=== PATIENT | female | born 1970 | race Caucasian/White ===

== ENCOUNTER 2017-10-05 12:57 | Emergency (ER) | payer BC, OTHER ==
[~2017-10-05] VITALS: Ht 165.1 cm; Wt 106.6 kg
[~2017-10-05 12:57] MED LIST: KETO-22 PO; MULT-974 PO; NSAID; OMEP20CA12 PO; ONDAN4ODT PO; VICODIN 5/325 PO
--- OUTSIDE RECORDS SUMMARY | 2017-10-05 13:03 | XMS REPORT ---
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 Info Not Available Non Drug Allergy Problems Problem Type Condition Code Onset Dates Condition Status Assessment Wellness examination Z00.00 Active Problem Allergic urticaria 708.0 Active Medications Medication Code System Code Instructions Start Date End Date Status Dosage Vitamin C [facility] [address]-27 1000 MG Orally Once a day 1 tablet Multivitamin Adult [facility] [address] - Orally not defined cetirizine [facility] [address]-85 10 mg May 01, 2014 1 tablet by Oral route 1 daily Vitamin D [facility] [address]-90 1000 UNIT Orally Once a day 1 tablet Procedures Procedure Coding System Code Date Preventive Care Est Pt. Age 40-64 CPT-4 43107 Mar 23, 2016 Vital Signs Date/Time: Mar 23, 2016 Cardiac Monitoring Heart Rate 80 bpm Weight 226.0 lbs Height 64 in BMI 38.79 Index Blood Pressure Diastolic 76 mmHg Blood Pressure Systolic 108 mmHg Results No Known Results Summary Purpose [employer] Submission
--- OUTSIDE RECORDS SUMMARY | 2017-10-05 13:03 | XMS REPORT ---
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
--- OUTSIDE RECORDS SUMMARY | 2017-10-05 13:06 | XMS REPORT | Continuity of Care Document ---
Author Author [facility] Organization [facility] Address Unknown Phone Unavailable Allergies There is no data. Medications There is no data. Problems Date Dx Coded Attending Type Code Diagnosis Diagnosed By 02/17/2010 JERAMIE OAKLEY APRN 278.00 OBESITY UNSPECIFIED 02/17/2010 JERAMIE OAKLEY APRN L 300.00 ANXIETY UNSPEC 02/17/2010 JERAMIE OAKLEY APRN L 401.1 HYPERTENSION, BENIGN ESSENTIAL 02/17/2010 CELE LOPEZ JERAMIE L 552.1 UMBILICAL HERNIA WITH OBSTRUCTION 02/17/2010 CELE LOPEZ JERAMIE L 780.60 FEVER, UNSPECIFIED 02/17/2010 ARMANDO OAKLEY APRNSON L 789.00 ABDOMINAL PAIN UNSPECIFIED SITE 02/25/2010 CELE LOPEZ JERAMIE L 296.30 MAJOR DEPRESSIVE DISORDER, RECURRENT EPISODE, UNSPECIFIED 04/08/2010 ARMANDO OAKLEY APRNSON L 553.1 UMBILICAL HERNIA WITHOUT OBSTRUCTION OR GANGRENE 04/25/2010 ARMANDO OAKLEY APRNSON L 296.32 MO DEPRESSIVE RECURRENT MODERATE 04/29/2010 CELE LOPEZ JERAMIE L 296.90 MOOD DISORDER 04/29/2010 ARMANDO OAKLEY APRNSON L 799.22 IRRITIBILITY 06/12/2010 ARMANDO OAKLEY APRNSON L 311 DEPRESSIVE DISORDER NOS 12/29/2010 ARMANDO OAKLEY APRNSON L V74.1 TB SCREENING 01/02/2011 CELE LOPEZ JERAMIE L V70.0 ROUTINE GENERAL MEDICAL EXAMINATION AT A HEALTH CARE FACILITY 04/30/2011 JERAMIE OAKLEY APRN L 465.9 ACUTE UPPER RESPIRATORY INFECTIONS OF UNSPECIFIED SITE 05/01/2014 ARMANDO OAKLEY APRNSON L 708.0 ALLERGIC URTICARIA Procedures Code [place] [address] ROUTINE VENIPUNCTURE 05/01/2014 26879 RAST ALLERGY OK/KS PANEL 05/01/2014 Results There is no data. Encounters ACCT No. Visit Date/Time Discharge Status Pt. Type Provider Facility Loc./Unit Complaint [id number] 10/22/2013 00:50:00 10/23/2013 13:50:00 DIS Outpatient [id number] 09/29/2017 09:00:00 09/29/2017 23:59:59 CLS Outpatient JULIET MASSEY APRN [id number] 05/01/2014 11:59:00 05/01/2014 23:59:59 CLS Outpatient JERAMIE OAKLEY APRN
[2017-10-05] MEDS ORDERED: AMOX1TAB12 (13:28)
--- NOTE | 2017-10-05 13:49 | ED Abdominal Pain ---
General Chief Complaint: Abdominal/GI Problems Stated Complaint: ABD PAIN Nursing Triage Note: TO ROOM C/O LOW ABD PAIN SINCE YESTERDAY. Sepsis Screen: No Definite Risk Source of Information: Patient Exam Limitations: No Limitations History of Present Illness Date Seen by Provider: Oct 05, 2017 Time Seen by Provider: 13:47 Initial Comments To ER with suprapubic and right lower quadrant abdominal pain since yesterday. She was started on Augmentin for a sinus infection last week. She is still on this. She initially thought that maybe this was some cramping from the Augmentin. She does report mild loose stools. No fevers or chills. No dysuria. She did have some nausea. Timing/Duration: 1-2 Days Severity/Quality: Moderate Location: Suprapubic Allergies and Home Medications Allergies Coded Allergies: No Known Drug Allergies (Unverified , 01/06/12) Home Medications Hydrocodone/Acetaminophen 1 Each Tablet, 1 EACH PO Q4H PRN for PAIN-SEVERE Prescribed by: DALE KRAFT on 10/05/17 150 Levofloxacin 500 Mg Tablet, 500 MG PO DAILY Prescribed by: DALE KRAFT on 10/05/17 150 Multivitamin 1 Each Tablet, 1 TAB PO DAILY, (Reported) Tamsulosin HCl 0.4 Mg Cap, 0.4 MG PO DAILY Prescribed by: DALE KRAFT on 10/05/17 1507 Patient Home Medication List Home Medication List Reviewed: Yes Review of Systems Constitutional: see HPI; No chills, No fever EENTM: No Symptoms Reported Respiratory: No Symptoms Reported Cardiovascular: No Symptoms Reported Gastrointestinal: See HPI, Abdominal Pain; Denies Constipated; Diarrhea, Nausea Genitourinary: No Symptoms Reported Musculoskeletal: no symptoms reported Skin: no symptoms reported Psychiatric/Neurological: No Symptoms Reported Endocrine: No Symptoms Reported Past Igojqzy-Heqtat-Zlgjca Hx Patient Social History Alcohol Use: Denies Use Recreational Drug Use: No Smoking Status: Never a Smoker Recent Foreign Travel: No Contact w/Someone Who Travel: No Recent Infectious Disease Expo: No Immunizations Up To Date Date of Influenza Vaccine: Apr 21, 2013 Past Medical History Surgeries: Yes (D&C/vag delivery x 2; incarcerated hernia repair 10/22/13) Respiratory: No Cardiac: No Neurological: No Last Menstrual Period: Sep 19, 2017 Female Reproductive Disorders: Endometriosis Sexually Transmitted Disease: Yes (trichomoniasis (jul 2013)) Gastrointestinal: No (incarcerated hernia repair 10/22/13 - dr. bar) Endocrine: Yes (gestational diabetes) Cancer: No Psychosocial: No Integumentary: No Blood Disorders: No Family Medical History Dementia 19 MOTHER, Onset:Unknown Family history: Arthritis 19 FATHER, Onset:Unknown (Rheumatoid Arthritis) Family history: Thyroid disorder 19 MOTHER, Onset:Unknown Hearing loss 19 FATHER, Onset:Unknown History of - respiratory disease 19 FATHER, Onset:Unknown Physical Exam Vital Signs Vital Signs - First Documented 10/05/17 13:10 Temp 97.8 Pulse 82 Resp 18 B/P (MAP) 154/104 (121) Capillary Refill : Less Than 3 Seconds General Appearance: WD/WN, no apparent distress HEENT: PERRL/EOMI, normal ENT inspection Neck: non-tender, full range of motion Respiratory: no respiratory distress, no accessory muscle use Gastrointestinal: normal bowel sounds, soft, tenderness Extremities: normal range of motion, non-tender Neurologic/Psychiatric: alert, normal mood/affect, oriented x 3 Skin: normal color Progress/Results/Core Measures Lab Results Laboratory Tests Test 10/05/17 13:42 10/05/17 13:56 Range/Units Urine Color YELLOW Urine Clarity SLIGHTLY CLOUDY Urine pH 6 5-9 Urine Specific [place] 1.025 H 1.016-1.022 Urine Protein 2+ H NEGATIVE Urine Glucose (UA) NEGATIVE NEGATIVE Urine Ketones NEGATIVE NEGATIVE Urine Nitrite NEGATIVE NEGATIVE Urine Bilirubin NEGATIVE NEGATIVE Urine Urobilinogen NORMAL NORMAL MG/DL Urine Leukocyte Esterase 2+ H NEGATIVE Urine RBC (Auto) 5+ H NEGATIVE Urine RBC >100 H /HPF Urine WBC 5-10 H /HPF Urine Squamous Epithelial Cells 2-5 /HPF Urine Crystals PRESENT H /LPF Urine Calcium Oxalate Crystals FEW H /LPF Urine Bacteria FEW H /HPF Urine Casts NONE /LPF Urine Mucus SMALL H /LPF Urine Culture Indicated YES White Blood Count 10.3 4.3-11.0 10^3/uL Red Blood Count 4.44 4.35-5.85 10^6/uL Hemoglobin 13.1 11.5-16.0 G/DL Hematocrit 40 35-52 % Mean Corpuscular Volume 90 80-99 FL Mean Corpuscular Hemoglobin 30 25-34 PG Mean Corpuscular Hemoglobin Concent 33 32-36 G/DL Red Cell Distribution Width 13.1 10.0-14.5 % Platelet Count 266 130-400 10^3/uL Mean Platelet Volume 10.2 7.4-10.4 FL Neutrophils (%) (Auto) 77 H 42-75 % Lymphocytes (%) (Auto) 13 12-44 % Monocytes (%) (Auto) 9 0-12 % Eosinophils (%) (Auto) 1 0-10 % Basophils (%) (Auto) 0 0-10 % Neutrophils # (Auto) 7.9 H 1.8-7.8 X 10^3 Lymphocytes # (Auto) 1.4 1.0-4.0 X 10^3 Monocytes # (Auto) 0.9 0.0-1.0 X 10^3 Eosinophils # (Auto) 0.1 0.0-0.3 10^3/uL Basophils # (Auto) 0.0 0.0-0.1 10^3/uL Sodium Level 141 135-145 MMOL/L Potassium Level 3.7 3.6-5.0 MMOL/L Chloride Level 105 98-107 MMOL/L Carbon Dioxide Level 27 21-32 MMOL/L Anion Gap 9 5-14 MMOL/L Blood Urea Nitrogen 10 7-18 MG/DL Creatinine 1.21 0.60-1.30 MG/DL Estimat Glomerular Filtration Rate 48 BUN/Creatinine Ratio 8 Glucose Level 88 70-105 MG/DL Calcium Level 10.4 H 8.5-10.1 MG/DL Total Bilirubin 0.4 0.1-1.0 MG/DL Aspartate Amino Transf (AST/SGOT) 47 H 5-34 U/L Alanine Aminotransferase (ALT/SGPT) 74 H 0-55 U/L Alkaline Phosphatase 85 40-136 U/L Total Protein 7.4 6.4-8.2 GM/DL Albumin 4.4 3.2-4.5 GM/DL My Orders Orders - DALE KRAFT APRN Ua Culture If Indicated (10/05/17 13:38) Urine Bedside (10/05/17 13:38) Saline Lock/Iv-Start (10/05/17 13:38) Cbc With Automated Diff (10/05/17 13:38) Comprehensive Metabolic Panel (10/05/17 13:38) Fentanyl Injection (Sublimaze Injection (10/05/17 14:00) Ct Abd/Pelvis Wo(Kidney Stone) (10/05/17 13:46) Ondansetron Injection (Zofran Injectio (10/05/17 14:00) Urine Culture (10/05/17 13:42) Abdomen/Kub 1[place] (10/05/17 15:08) Fentanyl Injection (Sublimaze Injection (10/05/17 15:30) Medications Given in ED Current Medications Medications Dose Ordered Sig/Priscilla Route Start Time Stop Time Status Last Admin Dose Admin Fentanyl Citrate 25 mcg ONCE PRN IVP 10/05/17 15:30 10/05/17 15:35 25 MCG Fentanyl Citrate 50 mcg ONCE ONCE IVP 10/05/17 14:00 10/05/17 14:01 DC 10/05/17 14:04 50 MCG Ondansetron HCl 4 mg ONCE ONCE IVP 10/05/17 14:00 10/05/17 14:01 DC 10/05/17 14:04 4 MG Vital Signs/I&O 10/05/17 13:10 Temp 97.8 Pulse 82 Resp 18 B/P (MAP) 154/104 (121) Blood Pressure Mean: 121 Diagonstic Imaging: CT Comments NAME: GERBER HOBBS [facility] REC#: [id number] PT STATUS: REG ER : 1970 PHYSICIAN: DALE KRAFT RN STARS ADMIT DATE: 10/05/17/ER Draft Date of Exam:10/05/17 CT ABD/PELVIS WO(KIDNEY STONE) PROCEDURE: CT urinary tract, rule out kidney stone. TECHNIQUE: Multiple contiguous axial images were obtained through the abdomen and pelvis without the use of intravenous contrast. INDICATION: Lower abdominal pain and nausea. Comparison is made with prior CT from 10/21/2013. The lung bases are clear. No discrete liver mass is identified. Gallbladder is unremarkable. The pancreas and spleen are unremarkable. No adrenal mass is identified. Left kidney does show a 3 mm nonobstructing calculus in the mid region. Right kidney is enlarged. There is hydronephrosis. This is caused by 6 mm calculus located at the right UPJ. The remainder of the right ureter is unremarkable. The bladder is unremarkable. No bladder calculi are seen. The aorta is non-aneurysmal. The small and large bowel loops are normal caliber. There is no ascites. The uterus and bladder are unremarkable. Left pelvic teratoma is again noted and unchanged. Previously noted abdominal wall hernia is no longer visualized. IMPRESSION: 1. 6 mm right UPJ calculus producing moderate hydronephrosis. There is also a small nonobstructing left renal calculus. 2. Stable left pelvic teratoma. No other significant abnormality is seen. Dictated on workstation # [id number] Dict: 10/05/17 1438 Trans: 10/05/17 1443 [facility] [id number] Interpreted by: MELYSSA BRANTLEY MD Electronically signed by: NAME: GERBER HOBBS [facility] REC#: [id number] PT STATUS: REG ER : 1970 PHYSICIAN: DALE KRAFT APRN ADMIT DATE: 10/05/17/ER Draft Date of Exam:10/05/17 ABDOMEN/KUB 1VIEW INDICATION: FINDINGS: A right upper quadrant obliquely oriented elongated calcification measures a cephalocaudal length of 9.5 mm, unchanged in size, morphology and location to what was demonstrated at earlier CT. Left pelvic calcification correlates with calcified nodule associated with fat-containing adnexal mass, presumed dermoid. No change when the differing modalities are taken into account. IMPRESSION: Proximal right ureteral stone, large and unchanged in appearance from earlier CT. Left adnexal partly calcified mass effect, unchanged as well. Dictated on workstation # [id number] Dict: 10/05/17 1529 Trans: 10/05/17 1535 [facility] [id number] Interpreted by: MINNIE LUU Electronically signed by: Departure Communication (Admissions) [id number]- I spoke with Dr. Pringle. He will follow with the patient in the clinic Impression Primary Impression: Right ureteral stone Disposition: 01 HOME, SELF-CARE Condition: Stable Departure-Patient Inst. Decision time for Depature: 15:05 Referrals: [facility] (PCP) Primary Care Physician MANAS PRINGLE MD Patient Instructions: Kidney Stones in Adults Add. Discharge Instructions: 1. Continue to use drugs appropriate 2. Stop the Augmentin and start the new antibiotic as directed 3. Start the pain medication as directed. Call Dr. Pringle's office either today or tomorrow for an appointment to be seen this week. All discharge instructions reviewed with patient and/or family. Voiced understanding. Scripts Hydrocodone/Acetaminophen ([place] 5-325 Tablet) 1 Each Tablet 1 EACH PO Q4H PRN for PAIN-SEVERE, #30 TAB Prov: DALE KRAFT APRN 10/05/17 Levofloxacin (Levaquin) 500 Mg Tablet 500 MG PO DAILY, #5 TAB Prov: DALE KRAFT APRN 10/05/17 Tamsulosin HCl (Flomax) 0.4 Mg Cap 0.4 MG PO DAILY, #14 CAP Prov: DALE KRAFT APRN 10/05/17 Work/School Note: Work Release Form Date Seen in the Emergency Department: Oct 05, 2017 Return to Work: Oct 08, 2017 Copy Copies To 1: MANAS PRINGLE MD, PETER J APRN Oct 05, 2017 13:49
[2017-10-05 13:52] LABS: BILIRUBIN,URINE NEGATIVE (NEGATIVE); CLARITY,URINE SLIGHTLY CLOUDY; COLOR,URINE YELLOW; GLUCOSE, URINE (UA) NEGATIVE (NEGATIVE); KETONES,URINE NEGATIVE (NEGATIVE); LEUKOCYTE ESTERASE ,URINE 2+ (NEGATIVE); NITRITE,URINE NEGATIVE (NEGATIVE); PH,URINE 6 (5-9); PROTEIN,URINE 2+ (NEGATIVE); UROBILINOGEN,URINE NORMAL (NORMAL)
[2017-10-05 14:00] LABS: BASOPHILS % (AUTO) 0 % (0-10); EOSINOPHILS # (AUTO) 0.1 10^3/uL (0.0-0.3); EOSINOPHILS % (AUTO) 1 % (0-10); HEMATOCRIT 40 % (35-52); HEMOGLOBIN 13.1 G/DL (11.5-16.0); LYMPHOCYTES # (AUTO) 1.4 X 10^3 (1.0-4.0); LYMPHOCYTES % (AUTO) 13 % (12-44); MEAN CORPUSCULAR HEMOGLOBIN 30 PG (25-34); MEAN CORPUSCULAR HGB CONC 33 G/DL (32-36); MEAN CORPUSCULAR VOLUME 90 FL (80-99); MEAN PLATELET VOLUME 10.2 FL (7.4-10.4); MONOCYTES # (AUTO) 0.9 X 10^3 (0.0-1.0); MONOCYTES % (AUTO) 9 % (0-12); NEUTROPHILS # (AUTO) 7.9 X 10^3 (1.8-7.8); NEUTROPHILS % (AUTO) 77 % (42-75); PLATELET COUNT 266 10^3/uL (130-400); RED BLOOD COUNT 4.44 10^6/uL (4.35-5.85); RED CELL DISTRIBUTION WIDTH 13.1 % (10.0-14.5); WHITE BLOOD COUNT 10.3 10^3/uL (4.3-11.0)
[2017-10-05] MEDS ORDERED: ONDANSETRON 4 MG/2 ML (SDV) Z0FRAN IVP ONE (14:00)
[2017-10-05] MEDS ORDERED: fentaNYL INJECTION 100 MCG/2 ML AMP IVP ONE (14:00)
[2017-10-05 14:04] LABS: BACTERIA,URINE FEW /HPF; CALCIUM OXALATE CRYSTALS,UR FEW /LPF; RBC,URINE >100 /HPF
[2017-10-05 14:17] LABS: ALBUMIN 4.4 GM/DL (3.2-4.5); BILIRUBIN,TOTAL 0.4 MG/DL (0.1-1.0); CALCIUM 10.4 MG/DL (8.5-10.1); CREATININE SERUM 1.21 MG/DL (0.60-1.30); POTASSIUM 3.7 MMOL/L (3.6-5.0); TOTAL PROTEIN 7.4 GM/DL (6.4-8.2)
--- NOTE | 2017-10-05 14:44 | Diagnostic Imaging Report ---
PROCEDURE: CT urinary tract, rule out kidney stone. TECHNIQUE: Multiple contiguous axial images were obtained through the abdomen and pelvis without the use of intravenous contrast. INDICATION: Lower abdominal pain and nausea. Comparison is made with prior CT from 10/21/2013. The lung bases are clear. No discrete liver mass is identified. Gallbladder is unremarkable. The pancreas and spleen are unremarkable. No adrenal mass is identified. Left kidney does show a 3 mm nonobstructing calculus in the mid region. Right kidney is enlarged. There is hydronephrosis. This is caused by 6 mm calculus located at the right UPJ. The remainder of the right ureter is unremarkable. The bladder is unremarkable. No bladder calculi are seen. The aorta is non-aneurysmal. The small and large bowel loops are normal caliber. There is no ascites. The uterus and bladder are unremarkable. Left pelvic teratoma is again noted and unchanged. Previously noted abdominal wall hernia is no longer visualized. IMPRESSION: 1. 6 mm right UPJ calculus producing moderate hydronephrosis. There is also a small nonobstructing left renal calculus. 2. Stable left pelvic teratoma. No other significant abnormality is seen. Dictated by: Dictated on workstation # [id number]
[2017-10-05] MEDS ORDERED: LEVO500T2 PO (15:07)
[2017-10-05] MEDS ORDERED: TAMS0.4C98 PO (15:07)
[2017-10-05] MEDS ORDERED: HYDR-757 PO (15:07)
[2017-10-05] MEDS ORDERED: fentaNYL INJECTION 100 MCG/2 ML AMP IVP PRN (15:30)
--- NOTE | 2017-10-05 15:36 | Diagnostic Imaging Report ---
INDICATION: FINDINGS: A right upper quadrant obliquely oriented elongated calcification measures a cephalocaudal length of 9.5 mm, unchanged in size, morphology and location to what was demonstrated at earlier CT. Left pelvic calcification correlates with calcified nodule associated with fat-containing adnexal mass, presumed dermoid. No change when the differing modalities are taken into account. IMPRESSION: Proximal right ureteral stone, large and unchanged in appearance from earlier CT. Left adnexal partly calcified mass effect, unchanged as well. Dictated by: Dictated on workstation # [id number]
[2017-10-05 15:42] VITALS: BP 151/99
== END 2017-10-05 15:42 | disposition home or self-care (01) ==
LOC: EDUNIT# 12:57 → ER 12:58
DX: N20.1 Calculus of ureter (principal); Z87.59 Personal history of other complications of pregnancy, childbirth and the puerperium; Z98.890 Other specified postprocedural states; Z86.32 Personal history of gestational diabetes; Z87.42 Personal history of other diseases of the female genital tract; Z87.19 Personal history of other diseases of the digestive system
CPT/HCPCS: 36415; 74018; 74176; 80053; 81000; 84703; 85025; 87088; 96374; 96375; 96376

== ENCOUNTER 2017-10-07 11:31 | Outpatient (CLI) | payer BC ==
[~2017-10-07] VITALS: Ht 165.1 cm; Wt 114.3 kg
[~2017-10-07 11:31] MED LIST changes: +AMOX1TAB12; +HYDR-757 PO; +LEVO500T2 PO; +TAMS0.4C98 PO
[2017-10-07] MEDS ORDERED: MULT1CAP27 PO (12:17)
[2017-10-08] MEDS ORDERED: PHEN-640 PO (13:47)
[2017-10-08] MEDS ORDERED: TAMS0.4C98 PO (13:47)
[2017-10-08] MEDS ORDERED: SULF1TAB35 PO (13:47)
[2017-10-08] MEDS ORDERED: HYDR-3870 PO (13:47)
== END 2017-10-07 12:26 ==
LOC: PREOP 11:31
PROVIDERS: ATTEND Urology
DX: Z01.818 Encounter for other preprocedural examination (principal)

== ENCOUNTER 2017-10-08 10:36 | Day surgery (SDC) | payer BC ==
[~2017-10-08] VITALS: Ht 165.1 cm; Wt 114.3 kg
[~2017-10-08 10:36] MED LIST changes: +MULT1CAP27 PO
--- OUTSIDE RECORDS SUMMARY | 2017-10-08 10:40 | XMS REPORT | Continuity of Care Document ---
Author Author [facility] Organization [facility] Address Unknown Phone Unavailable Allergies Active Description Code Type Severity Reaction Onset Reported/Identified Relationship to Patient Clinical Status Yes No Known Drug Allergies [id number] Drug Allergy Unknown N/A 01/06/2012 Medications There is no data. Problems Date Dx Coded Attending Type Code Diagnosis Diagnosed By 02/17/2010 JERAMIE OAKLEY APRN 278.00 OBESITY UNSPECIFIED 02/17/2010 JERAMIE OAKLEY APRN L 300.00 ANXIETY UNSPEC 02/17/2010 JERAMIE OAKLEY APRN L 401.1 HYPERTENSION, BENIGN ESSENTIAL 02/17/2010 ARMANDO OAKLEY APRNSON L 552.1 UMBILICAL HERNIA WITH OBSTRUCTION 02/17/2010 ARMANDO OAKLEY APRNSON L 780.60 FEVER, UNSPECIFIED 02/17/2010 ARMANDO OAKLEY APRNSON L 789.00 ABDOMINAL PAIN UNSPECIFIED SITE 02/25/2010 ARMANDO OAKLEY APRNSON L 296.30 MAJOR DEPRESSIVE DISORDER, RECURRENT EPISODE, UNSPECIFIED 04/08/2010 ARMANDO OAKLEY APRNSON L 553.1 UMBILICAL HERNIA WITHOUT OBSTRUCTION OR GANGRENE 04/25/2010 ARMANDO OAKLEY APRNSON L 296.32 MO DEPRESSIVE RECURRENT MODERATE 04/29/2010 ARMANDO OAKLEY APRNSON L 296.90 MOOD DISORDER 04/29/2010 ARMANDO OAKLEY APRNSON L 799.22 IRRITIBILITY 06/12/2010 ARMANDO OAKLEY APRNSON L 311 DEPRESSIVE DISORDER NOS 12/29/2010 JERAMIE OAKLEY APRN L V74.1 TB SCREENING 01/02/2011 ARMANDO OAKLEY APRNSON L V70.0 ROUTINE GENERAL MEDICAL EXAMINATION AT A HEALTH CARE FACILITY 04/30/2011 JERAMIE OAKLEY APRN L 465.9 ACUTE UPPER RESPIRATORY INFECTIONS OF UNSPECIFIED SITE 06/29/2012 Ot 553.20 VENTRAL HERNIA NOS 06/29/2012 Ot 571.8 CHRONIC LIVER DIS NEC 06/29/2012 Ot 592.0 CALCULUS OF KIDNEY 06/29/2012 Ot 789.00 ABDOMINAL PAIN, UNSPECIFIED SITE 10/23/2013 VIKASH OLIVA, SOFIYA Galo Ot 552.20 OBSTR VENTRAL HERNIA NOS 05/01/2014 MEHNAZFREYA JESSICA JERAMIE L 708.0 ALLERGIC URTICARIA 10/05/2017 Ot 620.2 OVARIAN CYST NEC/NOS 10/05/2017 Ot 620.2 OVARIAN CYST NEC/NOS 10/07/2017 DALE KRAFT APRN Ot N20.1 CALCULUS OF URETER 10/07/2017 DALE KRAFT APRN Ot R10.31 RIGHT LOWER QUADRANT PAIN 10/07/2017 DALE KRAFT APRN Ot Z86.32 PERSONAL HISTORY OF GESTATIONAL DIABETES 10/07/2017 DALE KRAFT APRN Ot Z87.19 PERSONAL HISTORY OF OTHER DISEASES OF TH 10/07/2017 DALE KRAFT APRN Ot Z87.42 PERSONAL HISTORY OF OTH DISEASES OF THE 10/07/2017 DALE KRAFT APRN Ot Z87.59 PERSONAL HISTORY OF COMP OF PREG, CHLDBR 10/07/2017 DALE KRAFT APRN Ot Z98.890 OTHER SPECIFIED POSTPROCEDURAL STATES Procedures Code [place] [address] ROUTINE VENIPUNCTURE 05/01/2014 82262 RAST ALLERGY OK/KS PANEL 05/01/2014 Results Test Result Range Complete urinalysis with reflex to culture - 10/05/17 13:42 Urine color determination YELLOW NRG Urine clarity determination SLIGHTLY CLOUDY NRG Urine pH measurement by test strip 6 5-9 Specific gravity of urine by test strip 1.025 1.016- 1.022 Urine protein assay by test strip, semi-quantitative 2+ NEGATIVE Urine glucose detection by automated test strip NEGATIVE NEGATIVE Erythrocytes detection in urine sediment by light microscopy 5+ NEGATIVE Urine ketones detection by automated test strip NEGATIVE NEGATIVE Urine nitrite detection by test strip NEGATIVE NEGATIVE Urine total bilirubin detection by test strip NEGATIVE NEGATIVE Urine urobilinogen measurement by automated test strip (mass/volume) NORMAL NORMAL Urine leukocyte esterase detection by dipstick 2+ NEGATIVE Automated urine sediment erythrocyte count by microscopy (number/high power field) > [HPF] NRG Automated urine sediment leukocyte count by microscopy (number/high power field ) [HPF] NRG Bacteria detection in urine sediment by light microscopy FEW NRG Squamous epithelial cells detection in urine sediment by light microscopy 2-5 NRG Crystals detection in urine sediment by light microscopy PRESENT NRG Casts detection in urine sediment by light microscopy NONE NRG Mucus detection in urine sediment by light microscopy SMALL NRG Complete urinalysis with reflex to culture YES NRG Calcium oxalate crystals detection in urine sediment by light microscopy FEW NRG Bacterial urine culture - 10/05/17 13:42 Bacterial urine culture [id number] NRG COLONY COUNT <10,000 NRG FTX;REPORTABLE (ONE COLONY) NRG FREE TEXT ENTRY 2 NO FURTHER STUDIES UNLESS REQUESTED NRG Complete blood count (CBC) with automated white blood cell (WBC) differential - 10/05/17 13:56 Blood leukocytes automated count (number/volume) 10.3 10*3/uL 4.3-11.0 Blood erythrocytes automated count (number/volume) 4.44 10*6/uL 4.35-5.85 Venous blood hemoglobin measurement (mass/volume) 13.1 g/dL 11.5-16.0 Blood hematocrit (volume fraction) 40 % 35-52 Automated erythrocyte mean corpuscular volume 90 [foz_us] 80-99 Automated erythrocyte mean corpuscular hemoglobin (mass per erythrocyte) 30 pg 25-34 Automated erythrocyte mean corpuscular hemoglobin concentration measurement ( mass/volume) 33 g/dL 32-36 Automated erythrocyte distribution width ratio 13.1 % 10.0-14.5 Automated blood platelet count (count/volume) 266 10*3/uL 130-400 Automated blood platelet mean volume measurement 10.2 [foz_us] 7.4-10.4 Automated blood neutrophils/100 leukocytes 77 % 42-75 Automated blood lymphocytes/100 leukocytes 13 % 12-44 Blood monocytes/100 leukocytes 9 % 0-12 Automated blood eosinophils/100 leukocytes 1 % 0-10 Automated blood basophils/100 leukocytes 0 % 0-10 Blood neutrophils automated count (number/volume) 7.9 10*3 1.8-7.8 Blood lymphocytes automated count (number/volume) 1.4 10*3 1.0-4.0 Blood monocytes automated count (number/volume) 0.9 10*3 0.0-1.0 Automated eosinophil count 0.1 10*3/uL 0.0-0.3 Automated blood basophil count (count/volume) 0.0 10*3/uL 0.0-0.1 Comprehensive metabolic panel - 10/05/17 13:56 Serum or plasma sodium measurement (moles/volume) 141 mmol/L 135-145 Serum or plasma potassium measurement (moles/volume) 3.7 mmol/L 3.6-5.0 Serum or plasma chloride measurement (moles/volume) 105 mmol/L 98-107 Carbon dioxide 27 mmol/L 21-32 Serum or plasma anion gap determination (moles/volume) 9 mmol/L 5-14 Serum or plasma urea nitrogen measurement (mass/volume) 10 mg/dL 7-18 Serum or plasma creatinine measurement (mass/volume) 1.21 mg/dL 0.60-1.30 Serum or plasma urea nitrogen/creatinine mass ratio 8 NRG Serum or plasma creatinine measurement with calculation of estimated glomerular filtration rate 48 NRG Serum or plasma glucose measurement (mass/volume) 88 mg/dL 70-105 Serum or plasma calcium measurement (mass/volume) 10.4 mg/dL 8.5-10.1 Serum or plasma total bilirubin measurement (mass/volume) 0.4 mg/dL 0.1-1.0 Serum or plasma alkaline phosphatase measurement (enzymatic activity/volume) 85 U/L 40-136 Serum or plasma aspartate aminotransferase measurement (enzymatic activity/ volume) 47 U/L 5-34 Serum or plasma alanine aminotransferase measurement (enzymatic activity/volume ) 74 U/L 0-55 Serum or plasma protein measurement (mass/volume) 7.4 g/dL 6.4-8.2 Serum or plasma albumin measurement (mass/volume) 4.4 g/dL 3.2-4.5 Encounters ACCT No. Visit Date/Time Discharge Status Pt. Type Provider Facility Loc./Unit Complaint [id number] 10/07/2017 11:31:00 10/07/2017 12:26:00 DIS Outpatient MANAS PRINGLE MD [facility] PREOP RIGHT URETERAL STONE [id number] 10/05/2017 12:58:00 10/05/2017 15:42:00 DIS Outpatient DALE KRAFT APRN [facility] ER ABD PAIN [id number] 10/22/2013 00:50:00 10/23/2013 13:50:00 DIS Outpatient SOFIYA SUH MD [facility] SDC INCARCERATED VENTRAL HERNIA, POSSIBLE STRANGULATIO [id number] 10/08/2017 12:00:00 STEPAN PRINGLE MD, MANAS [facility] RIGHT URETERAL STONE [id number] 06/29/2012 08:50:00 Document Registration [id number] 05/19/2012 14:01:00 Document Registration [id number] 09/29/2017 09:00:00 09/29/2017 23:59:59 CLS Outpatient JULIET MASSEY APRN [facility] [id number] 05/01/2014 11:59:00 05/01/2014 23:59:59 CLS Outpatient JERAMIE OAKLEY APRN
[2017-10-08 10:41] VITALS: BP 116/78
[2017-10-08] MEDS ORDERED: LIDOCAINE PF 2% 5 ML (XYLOCAINE) VIAL ONE (11:34)
[2017-10-08] MEDS ORDERED: fentaNYL INJECTION 100 MCG/2 ML AMP ONE (11:34)
[2017-10-08] MEDS ORDERED: proPOfol 200 MG/20 ML (DIPRIVAN) VIAL IV ONE (11:34)
[2017-10-08] MEDS ORDERED: ROCURONIUM 10 MG/ML 5 ML SYRINGE IV ONE (11:34)
[2017-10-08] MEDS ORDERED: MIDAZOLAM 2 MG/2 ML (VERSED) VIAL ONE (11:34)
[2017-10-08] MEDS ORDERED: SEVOFLURANE (ULTANE) 15 ML INHAL SOLN ONE (11:34)
--- NOTE | 2017-10-08 11:34 | Diagnostic Imaging Report ---
INDICATION: Ureteral stone. TECHNIQUE: Single supine view of the abdomen 11:19 AM CORRELATION STUDY: 10/05/2017 FINDINGS: 11 x 3 mm linear calcification superimposed over the inferior pole of the right kidney. This appears to be slightly more lateral in position compared to prior imaging. No additional calcification along the renal silhouette and/or expected course of the ureter on the right. On the left, there is punctate calcification over the left renal silhouette. In the left lower quadrant, there is again noted a calcification. 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 IMPRESSION: 1. Calcification in the right mid abdomen does appear to be slightly more lateral in position. Perhaps migration of the calcification is not excluded. Additional punctate calcification over the left kidney. Dictated by: Dictated on workstation # [id number]
[2017-10-08] MEDS ORDERED: LACTATED RINGERS 1,000 ML IV PRN (11:36)
[2017-10-08] MEDS ORDERED: MIDAZOLAM 2 MG/2 ML (VERSED) VIAL IV ONE (11:45)
[2017-10-08] MEDS ORDERED: cefTRIAXone INJECTION 1,000 MG in NS (IVPB) 100 ML IV ONE (11:45)
[2017-10-08 11:52] LABS: PHOSPHORUS 2.5 MG/DL (2.3-4.7); URIC ACID 6.9 MG/DL (2.6-7.2)
--- NOTE | 2017-10-08 11:59 | Progress Note-Pre Operative ---
Pre-Operative Progress Note H&P Reviewed The H&P was reviewed, patient examined and no changes noted. Date Seen by Provider: Oct 08, 2017 Time Seen by Provider: 11:59 Date H&P Reviewed: Oct 08, 2017 Time H&P Reviewed: 11:59 Pre-Operative Diagnosis: RT RENAL STONE MANAS PRINGLE MD Oct 08, 2017 11:59 am
--- NOTE | 2017-10-08 12:00 | Progress Note-Post Operative ---
Post-Operative Progess Note Surgeon (s)/Service Station Console Operator (s) Surgeon MANAS PRINGLE MD Service Station Console Operator: N/A Pre-Operative Diagnosis RT RENAL STONE Post-Operative Diagnosis SAME Procedure & Operative Findings Date of Procedure 10/08/17 Procedure Performed/Findings CYSTOSCOPY AND RT JJ STENT PLACEMENT Anesthesia Type GENERAL Estimated Blood Loss Estimated blood loss (mL): N/A Specimens/Packing Specimens Removed N/A Packing: N/A MANAS PRINGLE MD Oct 08, 2017 12:00 pm
--- NOTE | 2017-10-08 12:03 | Discharge Inst-Urology ---
Discharge Inst-Urology Discharge Medications New, Converted, or Re-newed RX: RX on Chart Patient Instructions/Follow Up Plan Please make appointment to been seen in office Thursday 10/12, KU prior to it KUB on way home Increase oral fluids for 48 hours and then as needed. Diet and Activity as tolerated. If questions or concerns contact your physician Or seek help at emergency department. MANAS PRINGLE MD Oct 08, 2017 12:02 pm
[2017-10-08] MEDS ORDERED: morphine INJ 10 MG/ML 1ML (SYR OR VIAL) IVP PRN (12:45)
[2017-10-08 13:35] VITALS: BP 139/83
--- NOTE | 2017-10-08 13:36 | Anesthesia-General Post-Op ---
General Patient Condition Mental Status/LOC: Same as Preop Cardiovascular: Satisfactory Nausea/Vomiting: Absent Respiratory: Satisfactory Pain: Controlled Complications: Absent Post Op Complications Complications None Follow Up Care/Instructions Patient Instructions None needed. Anesthesia/Patient Condition Patient Condition Patient is doing well, no complaints, stable vital signs, no apparent adverse anesthesia problems. No complications reported per nursing. SHERIF BROWN CRNA Oct 08, 2017 13:36
[2017-10-08] MEDS ORDERED: SULF1TAB35 PO (13:47)
[2017-10-08] MEDS ORDERED: HYDR-3870 PO (13:47)
[2017-10-08] MEDS ORDERED: PHEN-640 PO (13:47)
[2017-10-08] MEDS ORDERED: TAMS0.4C98 PO (13:47)
[2017-10-08 14:05] VITALS: BP 130/78
[2017-10-08] MEDS ORDERED: HYDROcodone/APAP 5 MG/325 MG (LORTAB) TAB PO ONE (14:15)
[2017-10-08] MEDS ORDERED: fluCOnazole (DIFLUCAN) 100 MG TAB PO ONE (14:15)
[2017-10-08] MEDS ORDERED: GLYCOPYRROLATE 0.2 MG/ML (ROBINUL) 2 ML VIAL ONE (14:28)
[2017-10-08] MEDS ORDERED: NEOSTIGMINE 1 MG/ML 5 ML SYRINGE ONE (14:28)
[2017-10-08 14:35] VITALS: BP 143/91
--- NOTE | 2017-10-08 14:47 | Diagnostic Imaging Report ---
PATIENT HISTORY: Post stent placement. TECHNIQUE: Frontal view of the abdomen. COMPARISON: 11:19 a.m. on the same day. FINDINGS: There has been placement of a right ureteral stent, with the proximal aspect in the expected region of the renal collecting system and the distal aspect overlying the bladder. The linear calcification overlying the inferior pole of the kidney appears unchanged since the prior study, may represent a calculus in the inferior pole of the kidney, or fragment. Irregular calcification in the left pelvis consistent with a teratoma is again seen. No acute osseous abnormality is seen. IMPRESSION: 1. Interval placement of a right ureteral stent. The linear calcification overlying the inferior pole of the right kidney appears unchanged in position. Dictated by: Dictated on workstation # [id number]
[2017-10-08] MEDS ORDERED: PHENAZOPYRIDINE 100 MG (PYRIDIUM) TABLET ONE (14:59)
[2017-10-08] MEDS ORDERED: PHENAZOPYRIDINE 100 MG (PYRIDIUM) TABLET PO ONE (15:00)
[2017-10-08 15:25] VITALS: BP 143/91
--- NOTE | 2017-10-08 15:45 | Diagnostic Imaging Report ---
INDICATION: Right ureteral stent placement. FINDINGS: Fluoroscopy was provided in the OR during right ureteral stent placement. 17 seconds of fluoroscopic time was utilized. Images demonstrate a right-sided double-J nephroureteral stent. IMPRESSION: Fluoroscopy for right ureteral stent placement. Dictated by: Dictated on workstation # [id number]
--- NOTE | 2017-10-08 21:10 | OPERATIVE REPORT ---
DATE OF SERVICE: 10/08/2017 PREOPERATIVE DIAGNOSIS: Right renal stone. POSTOPERATIVE DIAGNOSIS: Right renal stone. OPERATION PERFORMED: Cystoscopy and insertion of right double-J stent. SURGEON: Enoc Pringle MD ANESTHESIA: General. COMPLICATIONS: None. DESCRIPTION OF PROCEDURE: Under satisfactory general anesthesia, the patient in lithotomy position, genitalia were prepped and draped in the usual sterile fashion. Cystoscope was introduced into the bladder. There was no abnormality and clear efflux on both sides. Using the foroblique lens, I passed a 6-Montserratian 26 cm double-J stent all the way up to the kidney guided fluoroscopically. I removed the guidewire and the stent was seen draining nicely, proximally fluoroscopically and distal endoscopically. Bladder was evacuated and the cystoscope was removed. The patient tolerated the procedure and anesthesia well and was sent to recovery room in stable condition. PLAN: We will see her back at the office on Wednesday the . We will set her up for an ESWL on the which plan was already explained to her preoperatively. Job ID: [id number] DocumentID: [id number] Dictated Date: 10/08/2017 12:36:41 [employer] Web Developer Date: 10/08/2017 21:10:31 Dictated By: ENOC PRINGLE MD
== END 2017-10-08 15:25 | disposition home or self-care (01) ==
LOC: SDC 10:36
PROVIDERS: ATTEND Urology
DX: N20.0 Calculus of kidney (principal)
CPT/HCPCS: 36415; 74018; 83970; 84100; 84550; 84703; 87081

== ENCOUNTER 2017-10-13 08:23 | Day surgery (SDC) | payer BC, OTHER ==
[~2017-10-13] VITALS: Ht 165.1 cm; Wt 114.3 kg
[~2017-10-13 08:23] MED LIST changes: +HYDR-3870 PO; +PHEN-640 PO; +SULF1TAB35 PO
--- OUTSIDE RECORDS SUMMARY | 2017-10-13 08:25 | XMS REPORT | Continuity of Care Document ---
Author Author [facility] Organization [facility] Address Unknown Phone Unavailable Allergies Active Description Code Type Severity Reaction Onset Reported/Identified Relationship to Patient Clinical Status Yes No Known Drug Allergies [id number] Drug Allergy Unknown N/A 10/12/2017 Medications There is no data. Problems Date Dx Coded Attending Type Code Diagnosis Diagnosed By 02/17/2010 JERAMIE OAKLEY APRN 278.00 OBESITY UNSPECIFIED 02/17/2010 JERAMIE OAKLEY APRN L 300.00 ANXIETY UNSPEC 02/17/2010 JERAMIE OAKLEY APRN L 401.1 HYPERTENSION, BENIGN ESSENTIAL 02/17/2010 JERAMIE OAKLEY APRN L 552.1 UMBILICAL HERNIA WITH OBSTRUCTION 02/17/2010 JERAMIE OAKLEY APRN L 780.60 FEVER, UNSPECIFIED 02/17/2010 ARMANDO OAKLEY [...] OAKLEY APRN L V74.1 TB SCREENING 01/02/2011 JERAMIE OAKLEY APRN L V70.0 ROUTINE GENERAL MEDICAL EXAMINATION AT A HEALTH CARE FACILITY 04/30/2011 JERAMIE OAKLEY APRN L 465.9 ACUTE UPPER RESPIRATORY INFECTIONS OF UNSPECIFIED SITE 06/29/2012 Ot 553.20 VENTRAL HERNIA NOS 06/29/2012 Ot 571.8 CHRONIC LIVER DIS NEC 06/29/2012 Ot 592.0 CALCULUS OF KIDNEY 06/29/2012 Ot 789.00 ABDOMINAL PAIN, UNSPECIFIED SITE 10/23/2013 VIKASH OLIVA, SOFIYA Galo Ot 552.20 OBSTR VENTRAL HERNIA NOS 05/01/2014 JERAMIE OAKLEY APRN 708.0 ALLERGIC URTICARIA 10/05/2017 DALE KRAFT APRN Ot N20.1 CALCULUS OF URETER 10/05/2017 DALE KRAFT APRN Ot R10.31 RIGHT LOWER QUADRANT PAIN 10/05/2017 DALE KRAFT APRN Ot Z86.32 PERSONAL HISTORY OF GESTATIONAL DIABETES 10/05/2017 DALE KRAFT APRN Ot Z87.19 PERSONAL HISTORY OF OTHER DISEASES OF TH 10/05/2017 DALE KRAFT APRN Ot Z87.42 PERSONAL HISTORY OF OTH DISEASES OF THE 10/05/2017 DALE KRAFT APRN Ot Z87.59 PERSONAL HISTORY OF COMP OF PREG, CHLDBR 10/05/2017 DALE KRAFT APRN Ot Z98.890 OTHER SPECIFIED POSTPROCEDURAL STATES 10/05/2017 Ot 620.2 OVARIAN CYST NEC/NOS 10/05/2017 Ot 620.2 OVARIAN CYST NEC/NOS 10/07/2017 DALE KRAFT APRN Ot N20.1 CALCULUS OF URETER 10/07/2017 DALE KRATF APRN Ot R10.31 RIGHT LOWER QUADRANT PAIN [...] APRN Ot Z98.890 OTHER SPECIFIED POSTPROCEDURAL STATES 10/07/2017 PINO OLIVA, MANAS Olmos Ot Z01.818 ENCOUNTER FOR OTHER PREPROCEDURAL EXAMIN 10/08/2017 MANAS PRINGLE MD Ot N20.0 CALCULUS OF KIDNEY 10/08/2017 MANAS PRINGLE MD Ot Z01.818 ENCOUNTER FOR OTHER PREPROCEDURAL EXAMIN 10/08/2017 MANSA PRINGLE MD Ot Z01.818 ENCOUNTER FOR OTHER PREPROCEDURAL EXAMIN 10/12/2017 MANAS PRINGLE MD Ot N20.0 CALCULUS OF KIDNEY 10/12/2017 MANAS PRINGLE MD Ot N20.0 CALCULUS OF KIDNEY 10/12/2017 Ot 620.2 OVARIAN CYST NEC/NOS 10/12/2017 MANAS PRINGLE MD Ot Z01.818 ENCOUNTER FOR OTHER PREPROCEDURAL EXAMIN 10/13/2017 MANAS PRINGLE MD Ot 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 10/13/2017 MANAS PRINGLE MD Ot N20.0 CALCULUS OF KIDNEY 10/13/2017 MANAS PRINGLE MD Ot Z96.0 PRESENCE OF UROGENITAL IMPLANTS Procedures Code Description [place] [address] ROUTINE VENIPUNCTURE 05/01/2014 22647 RAST ALLERGY OK/KS PANEL 05/01/2014 Results Test [...] culture - 10/05/17 13:42 Bacterial urine culture [id number] NRG COLONY COUNT <10,000 NRG FTX;REPORTABLE (ONE [...] plasma albumin measurement (mass/volume) 4.4 g/dL 3.2-4.5 Serum or plasma uric acid measurement (mass/volume) - 10/08/17 11:20 Serum or plasma uric acid measurement (mass/volume) 6.9 mg/dL 2.6-7.2 Serum or plasma phosphate measurement (mass/volume) - 10/08/17 11:20 Serum or plasma phosphate measurement (mass/volume) 2.5 mg/dL 2.3-4.7 Serum or plasma intact pararthyroid hormone measurement (mass/volume) - 11:20 Serum or plasma intact parathyroid hormone measurement (mass/volume) 73.0 pg/mL 10.0-65.0 Bio-intact parathyroid hormone (PTH) measurement with calcium 9.8 % 8.5-10.5 Methicillin resistant Staphylococcus aureus (MRSA) screening culture - 11:26 Methicillin resistant Staphylococcus aureus (MRSA) screening culture NEG NRG Urine beta human chorionic gonadotropin (hCG) measurement - 10/08/17 11:35 Urine beta human chorionic gonadotropin (hCG) measurement NEGATIVE NEGATIVE Encounters ACCT No. Visit Date/Time Discharge Status Pt. Type Provider Facility Loc./Unit Complaint [id number] 10/12/2017 14:45:00 10/12/2017 15:01:00 DIS Outpatient MANAS PRINGLE MD [facility] PREOP RIGHT ESWL [id number] 10/08/2017 10:36:00 10/08/2017 15:25:00 DIS Outpatient MANAS PRINGLE MD [facility] SDC RIGHT URETERAL STONE [id number] 10/07/2017 11:31:00 10/07/2017 12:26:00 DIS Outpatient MANAS PRINGLE MD [facility] PREOP RIGHT URETERAL STONE [id number] 10/05/2017 12:58:00 10/05/2017 15:42:00 DIS Emergency DALE KRAFT APRN [facility] ER ABD PAIN [id number] 10/22/2013 00:50:00 10/23/2013 13:50:00 DIS Outpatient SOFIYA SUH MD [facility] INCARCERATED VENTRAL HERNIA, POSSIBLE STRANGULATIO [id number] 10/13/2017 08:23:00 ACT Outpatient MANAS PRINGLE MD [facility] SDC RIGHT STONE [id number] 10/12/2017 13:05:00 ACT Outpatient MANAS PRINGLE MD [facility] RAD RIGHT RENAL STONE [id number] 06/29/2012 08:50:00 Document Registration [id number] 05/19/2012 14:01:00 Document Registration [id number] 09/29/2017 09:00:00 09/29/2017 23:59:59 CLS Outpatient JULIET MASSEY APRN [facility] [id number] 05/01/2014 11:59:00 05/01/2014 23:59:59 CLS Outpatient JERAMIE OAKLEY APRN
--- NOTE | 2017-10-13 08:35 | Progress Note-Pre Operative ---
Pre-Operative Progress Note H&P Reviewed The H&P was reviewed, patient examined and no changes noted. Date Seen by Provider: Oct 13, 2017 Time Seen by Provider: 08:35 Date H&P Reviewed: Oct 13, 2017 Time H&P Reviewed: 08:35 Pre-Operative Diagnosis: RT RENAL STONE MANAS PRINGLE MD Oct 13, 2017 8:35 am
[2017-10-13 08:45] VITALS: BP 102/82
[2017-10-13] MEDS ORDERED: SCOPOLAMINE 1.5 MG (TRANSDERM-SCOP) PATCH TOP ONE (08:45)
[2017-10-13] MEDS ORDERED: cefTRIAXone INJECTION 1,000 MG in NS (IVPB) 100 ML IV ONE (08:45)
[2017-10-13] MEDS ORDERED: FAMOTIDINE 20MG/2ML IV (PEPCID) IV ONE (08:45)
[2017-10-13] MEDS ORDERED: ONDANSETRON 4 MG/2 ML (SDV) Z0FRAN IV ONE (08:45)
[2017-10-13] MEDS ORDERED: NS (IVPB) 100 ML ONE (09:07)
[2017-10-13] MEDS ORDERED: cefTRIAXone 1 GM (ROCEPHIN) VIAL ONE (09:07)
[2017-10-13] MEDS: LACTATED RINGERS 1,000 ML IV PRN ×2 (09:20→11:49)
[2017-10-13] MEDS ORDERED: fentaNYL INJECTION 100 MCG/2 ML AMP ONE ×2 (09:21→10:36)
[2017-10-13] MEDS ORDERED: fentaNYL INJECTION 100 MCG/2 ML AMP IVP ONE (09:25)
--- NOTE | 2017-10-13 09:28 | Diagnostic Imaging Report ---
Indication: Bilateral renal stones. Time of examination: 9:17 AM Comparison: Correlation is made with prior study from one day earlier. Findings: A right double-J nephroureteral stent remains in place. A right renal calculus is unchanged in position. Tiny calculus overlying the lower pole of the left kidney is also unchanged. No calculi along the course of this ureter is seen. Pelvic calcification is present on the left, suggestive of patient's known teratoma. Impression: 1. Stable KUB when compared to examination one day earlier. Dictated by: Dictated on workstation # [id number]
[2017-10-13] MEDS ORDERED: MIDAZOLAM 2 MG/2 ML (VERSED) VIAL ONE (10:36)
[2017-10-13] MEDS ORDERED: FUROSEMIDE 40 MG/4 ML INJ (LASIX) ONE (10:36)
[2017-10-13] MEDS ORDERED: DEXAMETHASONE 10 MG/ML (DECADRON) 1 ML VIAL ONE (10:36)
[2017-10-13] MEDS ORDERED: KETOROLAC 30 MG/ML VIAL ONE (10:36)
[2017-10-13] MEDS ORDERED: proPOfol 200 MG/20 ML (DIPRIVAN) VIAL IV ONE (10:36)
[2017-10-13] MEDS ORDERED: LIDOCAINE PF 2% 5 ML (XYLOCAINE) VIAL ONE (10:36)
[2017-10-13] MEDS ORDERED: ONDANSETRON 4 MG/2 ML (SDV) Z0FRAN ONE (10:36)
[2017-10-13] MEDS ORDERED: SEVOFLURANE (ULTANE) 15 ML INHAL SOLN ONE (10:36)
--- NOTE | 2017-10-13 11:07 | Progress Note-Post Operative ---
Post-Operative Progess Note Surgeon (s)/Lock Corner Machine Operator (s) Surgeon MANAS PRINGLE MD Lock Corner Machine Operator: n/a Pre-Operative Diagnosis RT RENAL STONE Post-Operative Diagnosis same Procedure & Operative Findings Date of Procedure 10/13/17 Procedure Performed/Findings RT ESWL Anesthesia Type GENERAL Estimated Blood Loss Estimated blood loss (mL): N/A Specimens/Packing Specimens Removed N/A Packing: N/A MANAS PRINGLE MD Oct 13, 2017 11:07 am
--- NOTE | 2017-10-13 11:09 | Discharge Inst-Urology ---
Discharge Inst-Urology Discharge Medications New, Converted, or Re-newed RX: RX on Chart Patient Instructions/Follow Up Plan Please make appointment to been seen in office next week for cysto and DC stent KUB on way home Post ESWL instructions KUB prior to office visit Increase oral fluids for 48 hours and then as needed. Diet and Activity as tolerated. If questions or concerns contact your physician Or seek help at emergency department. MANAS PRINGLE MD Oct 13, 2017 11:09 am
[2017-10-13 12:20] VITALS: BP 140/84
[2017-10-13] MEDS ORDERED: NITR-65 PO (12:26)
[2017-10-13] MEDS ORDERED: HYDR-3870 PO (12:26)
--- NOTE | 2017-10-13 12:39 | Anesthesia-General Post-Op ---
General Patient Condition Mental Status/LOC: Same as Preop Cardiovascular: Satisfactory Nausea/Vomiting: Absent Respiratory: Satisfactory Pain: Controlled Complications: Absent Post Op Complications Complications None Follow Up Care/Instructions Patient Instructions None needed. Anesthesia/Patient Condition Patient Condition Patient is doing well, no complaints, stable vital signs, no apparent adverse anesthesia problems. No complications reported per nursing. TASHI REYES CRNA Oct 13, 2017 12:39
[2017-10-13 12:50] VITALS: BP 114/81
[2017-10-13 13:45] VITALS: BP 114/81
--- NOTE | 2017-10-13 16:01 | Diagnostic Imaging Report ---
INDICATION: Status post lithotripsy. TIME OF EXAM: 01:32 p.m. Correlation is made with study earlier the same day. FINDINGS: Right double-J nephroureteral stent is in place. Stone noted overlying the lower pole of the right kidney is not as well seen on this current exam. No definite calculi along the course of the stent are detected. There is a calcific density in the left pelvis corresponding with patient's known teratoma. Left lower pole calculus is also not well seen on this current exam. IMPRESSION: Previously noted bilateral renal calculi are not as well seen, status post lithotripsy. No definite calculi along the course of the stent are detected. Dictated by: Dictated on workstation # [id number]
--- NOTE | 2017-10-13 20:46 | OPERATIVE REPORT ---
DATE OF SERVICE: 10/13/2017 PREOPERATIVE DIAGNOSIS: Right renal stone. POSTOPERATIVE DIAGNOSIS: Right renal stone. OPERATION PERFORMED: Right ESWL. SURGEON: Enoc Pringle MD. ANESTHESIA: General. COMPLICATIONS: None. DESCRIPTION OF PROCEDURE: Under satisfactory general anesthesia, the patient in supine position on the ESWL table. The right renal stone was localized and shocks were delivered at kV of 5. A total of 2500 shocks completely fragmented the stone. The patient received 40 mg of Lasix and 30 mg of Toradol IV at the end of the procedure. She tolerated the procedure and anesthesia well and was sent to recovery room in stable condition. Job ID: [id number] DocumentID: [id number] Dictated Date: 10/13/2017 11:19:14 [employer] Office Supervisor Date: 10/13/2017 20:46:02 Dictated By: ENOC PRINGLE MD
== END 2017-10-13 13:45 | disposition home or self-care (01) ==
LOC: SDC 08:23
PROVIDERS: ATTEND Urology
DX: N20.0 Calculus of kidney (principal); Z11.2 Encounter for screening for other bacterial diseases; E66.01 Morbid (severe) obesity due to excess calories; Z68.41 Body mass index [BMI] 40.0-44.9, adult
CPT/HCPCS: 74018; 84703; 87081

== ENCOUNTER → 2017-10-25 | Outpatient (CLI) | payer BC ==
[~2017-10-25] MED LIST changes: +ACHD5005 PO; +ASCO500T6 PO; +CHOL10003 PO; +CIPR500T4 PO; +DOCU100C37 PO; +FLUC150T PO; +IBUP-844 PO; +MAGN400T39 PO; +METR500T21 PO; +NITR-65 PO
--- NOTE | 2017-10-25 16:47 | Diagnostic Imaging Report ---
INDICATION: Nephrolithiasis EXAM: KUB at 4:03 PM FINDINGS: There is a right-sided double-J ureteral stent. There are no calculi seen in either ureteral distribution. There is a 6 mm stone in an upper pole calyx of the right kidney. There is a 10 mm stone in distal left ureter region. IMPRESSION: Right nephrolithiasis. Questionable distal left ureterolithiasis. Dictated by: Dictated on workstation # [id number]
== END ==
LOC: RAD 15:30
PROVIDERS: ATTEND Urology
DX: N20.0 Calculus of kidney (principal)
CPT/HCPCS: 74018

== ENCOUNTER 2017-11-09 07:30 | Outpatient (RCR) | payer BC, OTHER ==
[~2017-11-09 07:30] MED LIST changes: -ACHD5005 PO; -ASCO500T6 PO; -CHOL10003 PO; -CIPR500T4 PO; -DOCU100C37 PO; -FLUC150T PO; -IBUP-844 PO; -MAGN400T39 PO; -METR500T21 PO
[2017-11-11] MEDS ORDERED: MAGN400T39 PO (12:06)
[2017-11-11] MEDS ORDERED: ASCO500T6 PO (12:06)
[2017-11-11] MEDS ORDERED: CHOL10003 PO (12:06)
[2017-11-24] MEDS ORDERED: CIPR500T4 PO (09:07)
[2017-11-24] MEDS ORDERED: IBUP-844 PO (09:07)
[2017-11-24] MEDS ORDERED: DOCU100C37 PO (09:07)
[2017-11-24] MEDS ORDERED: METR500T21 PO (09:07)
[2017-11-24] MEDS ORDERED: ACHD5005 PO (09:07)
[2017-11-24] MEDS ORDERED: FLUC150T PO (09:21)
== END 2018-01-23 | disposition home or self-care (01) ==
LOC: LAB 07:30 → EDSTATUS 08:20
PROVIDERS: ATTEND Urology
DX: N20.0 Calculus of kidney (principal)
CPT/HCPCS: 82140; 82340; 82507; 82570; 83735; 83945; 83986; 84105; 84133; 84300; 84392; 84560

== ENCOUNTER → 2017-11-09 | Outpatient (CLI) | payer BC ==
--- NOTE | 2017-11-09 14:22 | Diagnostic Imaging Report ---
INDICATION: Elevated parathyroid hormone levels. TECHNIQUE: Grayscale sonographic images of the thyroid gland. CORRELATION STUDY: None. FINDINGS: RIGHT LOBE: 5.1 x 1.9 x 1.8 cm. There is normal echotexture about the right lobe. LEFT LOBE: 5.2 x 1.1 x 1.4 cm. There is normal echotexture about the left lobe. Appearing to be separate but just adjacent to the posterior margins of the left lobe is a slightly hypoechoic area likely cystic. Slight posterior acoustic enhancement. This area measures approximately 9 x 5 x 8 mm. No definitive solid-appearing nodule adjacent to the thyroid gland. IMPRESSION: 1. Borderline enlarged thyroid gland without discrete thyroid mass. 2. There does appear to be perhaps a very small, nonspecific cystic area just deep to the left lobe of the thyroid gland. No adjacent solid-appearing nodule to reflect potential parathyroid adenoma. (Normal gland size: 4-5 x 2 x 2 cm) Dictated by: Dictated on workstation # [id number]
--- NOTE | 2017-11-09 19:01 | Diagnostic Imaging Report ---
INDICATION: Routine screening. Comparison is made with prior study from 01/27/2012 and 01/06/2011. 2-D and 3-D bilateral screening mammography was performed with CAD. The current study was also evaluated with a Computer Aided Detection (CAD) system. FINDINGS: Scattered fibronodular densities are identified bilaterally. The parenchymal pattern appears stable. No discrete mass or malignant-appearing microcalcifications are seen. The axillae are unremarkable. IMPRESSION: No mammographic features suspicious for malignancy are identified. ACR BI-RADS Category 1: Negative. Result letter will be mailed to the patient. Note: At least 10% of breast cancer is not imaged by mammography. Dictated by: Dictated on workstation # [id number]
== END ==
LOC: RAD 08:10
PROVIDERS: ATTEND Nurse Practitioner Family
DX: Z12.31 Encounter for screening mammogram for malignant neoplasm of breast (principal); E21.5 Disorder of parathyroid gland, unspecified
CPT/HCPCS: 76536; 77067

== ENCOUNTER 2017-11-11 05:29 | Outpatient (CLI) | payer BC ==
[~2017-11-11] VITALS: Ht 165.1 cm; Wt 113.4 kg
[2017-11-11] MEDS ORDERED: ASCO500T6 PO (12:06)
[2017-11-11] MEDS ORDERED: CHOL10003 PO (12:06)
[2017-11-11] MEDS ORDERED: MAGN400T39 PO (12:06)
== END 2017-11-11 12:13 ==
LOC: PREOP 05:29
PROVIDERS: ATTEND Obstetrics & Gynecology
DX: Z01.818 Encounter for other preprocedural examination (principal); N80.9 Endometriosis, unspecified; N39.0 Urinary tract infection, site not specified

== ENCOUNTER → 2018-03-20 | Outpatient (CLI) | payer BC ==
[~2018-03-20] MED LIST changes: +ACHD5005 PO; +ASCO500T6 PO; +CHOL10003 PO; +CIPR500T4 PO; +DOCU100C37 PO; +FLUC150T PO; +HYDR-4226 PO; -HYDR-757 PO; +IBUP-844 PO; +MAGN400T39 PO; +METR500T21 PO
[2018-03-20 11:09] LABS: HEMOGLOBIN 13.7 G/DL (11.5-16.0); RED BLOOD COUNT 4.7 10^6/uL (4.35-5.85); RED CELL DISTRIBUTION WIDTH 13.1 % (10.0-14.5); WHITE BLOOD COUNT 7.5 10^3/uL (4.3-11.0)
[2018-03-20 11:24] LABS: ALANINE AMINOTRANSFERASE 74 U/L (0-55); ALBUMIN 4.3 GM/DL (3.2-4.5); ALKALINE PHOSPHATASE 83 U/L (40-136); BILIRUBIN,TOTAL 0.7 MG/DL (0.1-1.0); BUN/CREATININE RATIO 14; CALCIUM 10.4 MG/DL (8.5-10.1); CARBON DIOXIDE 27 MMOL/L (21-32); CHLORIDE 101 MMOL/L (98-107); CHOLESTEROL 214 MG/DL (< 200); CREATININE SERUM 0.76 MG/DL (0.60-1.30); GFR ESTIMATED > 60; GLUCOSE 108 MG/DL (70-105); HDL CHOLESTEROL 41 MG/DL (40-60); POTASSIUM 3.7 MMOL/L (3.6-5.0); SODIUM 138 MMOL/L (135-145); TOTAL PROTEIN 7.6 GM/DL (6.4-8.2); TRIGLYCERIDES 184 MG/DL (<150); VLDL CHOLESTEROL 37 MG/DL (5-40)
[2018-03-20 11:45] LABS: FREE T4 (FREE THYROXINE) 0.92 NG/DL (0.70-1.48)
== END ==
LOC: LAB 10:20
PROVIDERS: ATTEND Nurse Practitioner Family
DX: E04.1 Nontoxic single thyroid nodule (principal); R74.8 Abnormal levels of other serum enzymes; E34.9 Endocrine disorder, unspecified; R53.83 Other fatigue
CPT/HCPCS: 36415; 80053; 80061; 82306; 82607; 82728; 82746; 83540; 83970; 84439; 84443; 85027; 86376; 86800

== ENCOUNTER → 2018-04-01 | Outpatient (CLI) | payer BC, OTHER ==
--- NOTE | 2018-04-01 14:42 | Diagnostic Imaging Report ---
INDICATION: Thyroid nodule, followup. TECHNIQUE: Grayscale sonographic images of the thyroid gland. CORRELATION STUDY: 11/09/2017 FINDINGS: RIGHT LOBE: 4.9 x 1.7 x 2.0 cm. There is normal echotexture about the right lobe. LEFT LOBE: 4.3 x 1.3 x 1.9 cm. There is normal echotexture about the left lobe. Again, appearing just adjacent to but separate from the posterior margins of the left lobe, is a slightly elongated hypoechoic region. This may be cystic and currently measures 9 x 8 x 5 mm. Previously measuring 9 x 8 x 5 mm, unchanged. IMPRESSION: 1. Borderline enlarged thyroid gland again demonstrated. 2. Small, perhaps cystic area just adjacent to the left lobe appears generally stable in its size and appearance. (Normal gland size: 4-5 x 2 x 2 cm) Dictated by: Dictated on workstation # [id number]
== END ==
LOC: RAD 13:50
PROVIDERS: ATTEND Nurse Practitioner Family
DX: E04.1 Nontoxic single thyroid nodule (principal)
CPT/HCPCS: 76536

== ENCOUNTER → 2018-08-09 | Outpatient (CLI) | payer BC ==
--- NOTE | 2018-08-09 15:34 | Diagnostic Imaging Report ---
INDICATION: Nuclear Medicine parathyroid planar with SPECT CT. INDICATION: Hypercalcemia. TECHNIQUE: This study was performed following administration of 19.9 mCi of 99M technetium sestamibi. Images were taken 20 minutes post injection and 2 hours post injection. SPECT images of the neck and thorax were also performed in the axial, sagittal, and coronal planes. COMPARISON: There are no prior Nuclear Medicine studies available for comparison. The thyroid ultrasound exam of 04/01/2018 noted borderline enlargement of the thyroid gland. There was also a small cystic area adjacent to the posterior aspect of the left lobe. There was no solid mass along either the inferior or superior poles to suggest a parathyroid adenoma. FINDINGS: On this exam, there is no abnormal uptake about the thyroid gland that would suggest the presence of a parathyroid adenoma. There is no other abnormal uptake evident. IMPRESSION: 1. There is no abnormal uptake that would indicate the presence of a parathyroid adenoma. 2. If further imaging for a parathyroid adenoma is desired, then MRI would recommended. Dictated by: Dictated on workstation # [id number]
== END ==
LOC: CARD 12:02
PROVIDERS: ATTEND Internal Medicine Endocrinology, Diabetes & Metabolism
DX: N20.0 Calculus of kidney (principal)
CPT/HCPCS: 78072

== ENCOUNTER 2018-10-23 12:24 | Outpatient (RCR) | payer BC ==
--- NOTE | 2018-10-21 17:43 | Diagnostic Imaging Report ---
INDICATION: Urinary tract calculi. FINDINGS: Supine images of the abdomen are obtained with comparison made to study of 10/25/2017. There has been interval removal of right ureteric stent. Tiny rounded calcification is seen in the left upper quadrant and may reside within the upper pole of the left kidney. There is no evidence of calculus along the course of either ureter. Small rounded calcification in the left hemipelvis is likely due to phlebolith. IMPRESSION: Probable tiny left upper pole nonobstructing left renal calculus. Otherwise, no evidence of urinary tract calculus is seen post removal of right ureteric stent. Dictated by: Dictated on workstation # [id number]
[~2018-10-23 12:24] MED LIST changes: +METR-145 PO; -METR500T21 PO
== END 2019-01-19 | disposition home or self-care (01) ==
LOC: LAB 12:24
PROVIDERS: ATTEND Urology
DX: N20.9 Urinary calculus, unspecified (principal)
CPT/HCPCS: 36415; 74018; 82140; 82340; 82507; 82570; 83735; 83945; 83986; 84105; 84133; 84300; 84392; 84560

== ENCOUNTER → 2019-01-04 | Outpatient (CLI) | payer BC ==
[2019-01-04 10:01] LABS: BASOPHILS % (AUTO) 0 % (0-10); EOSINOPHILS # (AUTO) 0.1 10^3/uL (0.0-0.3); EOSINOPHILS % (AUTO) 1 % (0-10); HEMATOCRIT 41 % (35-52); HEMOGLOBIN 13.2 G/DL (11.5-16.0); LYMPHOCYTES # (AUTO) 1.3 X 10^3 (1.0-4.0); LYMPHOCYTES % (AUTO) 16 % (12-44); MEAN CORPUSCULAR HEMOGLOBIN 28 PG (25-34); MEAN CORPUSCULAR HGB CONC 32 G/DL (32-36); MEAN CORPUSCULAR VOLUME 88 FL (80-99); MEAN PLATELET VOLUME 9.7 FL (7.4-10.4); MONOCYTES # (AUTO) 0.5 X 10^3 (0.0-1.0); MONOCYTES % (AUTO) 6 % (0-12); NEUTROPHILS # (AUTO) 6.1 X 10^3 (1.8-7.8); NEUTROPHILS % (AUTO) 76 % (42-75); PLATELET COUNT 295 10^3/uL (130-400); RED CELL DISTRIBUTION WIDTH 13.6 % (10.0-14.5)
[2019-01-04 10:23] LABS: ALANINE AMINOTRANSFERASE 28 U/L (0-55); ALBUMIN 4.5 GM/DL (3.2-4.5); ALKALINE PHOSPHATASE 84 U/L (40-136); BILIRUBIN,TOTAL 0.4 MG/DL (0.1-1.0); BUN/CREATININE RATIO 10; CALCIUM 9.7 MG/DL (8.5-10.1); CARBON DIOXIDE 26 MMOL/L (21-32); CHLORIDE 104 MMOL/L (98-107); CREATININE SERUM 0.98 MG/DL (0.60-1.30); GFR ESTIMATED > 60; GLUCOSE 130 MG/DL (70-105); POTASSIUM 3.5 MMOL/L (3.6-5.0); SODIUM 139 MMOL/L (135-145); TOTAL PROTEIN 7.6 GM/DL (6.4-8.2)
[2019-01-04 10:43] LABS: FREE T4 (FREE THYROXINE) 0.73 NG/DL (0.70-1.48)
== END ==
LOC: RAD 09:37
PROVIDERS: ATTEND Nurse Practitioner Family
DX: E11.9 Type 2 diabetes mellitus without complications (principal)
CPT/HCPCS: 36415; 80053; 84439; 84443; 85025

== ENCOUNTER → 2019-01-12 | Outpatient (CLI) | payer BC ==
--- NOTE | 2019-01-12 19:20 | Diagnostic Imaging Report ---
INDICATION: Screening The current study was also evaluated with a Computer Aided Detection (CAD) system. 3-D Tomographic imaging was also performed. COMPARISON: Comparison is made with prior examination of 11/09/2017 and 01/27/2012. FINDINGS: There are scattered fibroglandular densities bilaterally. There are a few benign-type calcifications. There is no dominant mass, spiculated lesion, or suspicious calcification notified. Skin, nipples, and axillae are unremarkable. IMPRESSION: Benign. ACR BI-RADS Category 2: Benign findings. Result letter will be mailed to the patient. Note: At least 10% of breast cancer is not imaged by mammography. Dictated by: Dictated on workstation # [id number]
== END ==
LOC: RAD 10:15
PROVIDERS: ATTEND Obstetrics & Gynecology
DX: Z12.31 Encounter for screening mammogram for malignant neoplasm of breast (principal)
CPT/HCPCS: 77067

== ENCOUNTER 2019-01-16 21:02 | Outpatient (CLI) | payer BC | END 2019-01-17 07:22 | disposition home or self-care (01) | LOC: SLEEP 21:02 | PROVIDERS: ATTEND Nurse Practitioner Family | DX: G47.33 Obstructive sleep apnea (adult) (pediatric) (principal) | CPT/HCPCS: 95811 ==

== ENCOUNTER → 2019-03-28 | Outpatient (CLI) | payer BC ==
[2019-03-28 17:56] LABS: CALCIUM 9.6 MG/DL (8.5-10.1); CREATININE SERUM 1.1 MG/DL (0.60-1.30); PHOSPHORUS 3.2 MG/DL (2.3-4.7); POTASSIUM 3.4 MMOL/L (3.6-5.0); URIC ACID 8.2 MG/DL (2.6-7.2)
--- NOTE | 2019-03-28 18:14 | Diagnostic Imaging Report ---
INDICATION: Urinary calculi. EXAMINATION: KUB obtained at 05:39 p.m. and compared to 10/21/2018. FINDINGS: The abdominal bowel gas pattern is unremarkable. There is moderate stool throughout the colon. There are no overt radiopaque calculi over the right kidney. There is a small questionable calculus overlying the left kidney. There is a small left pelvic calcification which may represent phlebolith or stone but is unchanged compared to the previous study. IMPRESSION: Unremarkable bowel gas pattern. Small left pelvic calcification is unchanged from 10/21/2018. Small questionable calcification overlying the left kidney measures about 3 mm and is stable compared to the prior study. Dictated by: Dictated on workstation # [id number]
== END ==
LOC: LAB 17:13
PROVIDERS: ATTEND Urology
DX: N20.9 Urinary calculus, unspecified (principal)
CPT/HCPCS: 36415; 74018; 80048; 84100; 84550

== ENCOUNTER → 2019-05-25 | Outpatient (CLI) | payer BC ==
[~2019-05-25] MED LIST changes: -TAMS0.4C98 PO; +TMSL.4C PO
--- NOTE | 2019-05-25 10:15 | Diagnostic Imaging Report ---
INDICATION: Palpable lump left breast. Correlation is made with prior mammogram 01/12/2019. Unilateral left 2-D and 3-D diagnostic mammography was performed with CAD. A BB marker was placed at the area of palpable abnormality in the medial retroareolar region. Left breast is heterogeneously dense, limiting sensitivity of mammography. There is some mild density at the area of palpable abnormality, indeterminate. No suspicious calcifications are seen. Left axilla is unremarkable. IMPRESSION: There is mild density just below the skin surface in the medial aspect left breast at the area of palpable abnormality. Further evaluation of this area with ultrasound is recommended and will be performed today. BI-RADS 0 ACR BI-RADS Category 0: Incomplete. (Needs additional imaging evaluation). Result letter will be mailed to the patient. Note: At least 10% of breast cancer is not imaged by mammography. Dictated by: Dictated on workstation # [id number]
--- NOTE | 2019-05-25 10:43 | Diagnostic Imaging Report ---
INDICATION: Palpable lump left breast. Correlation is made with the diagnostic mammogram earlier same day. Interrogation of the palpable abnormality left breast was performed. This corresponds to the 9:30 location approximately 1 cm from the nipple. There is a small complex cystic lesion at this location measuring 8 mm x 3 mm. There is an echogenic halo around the lesion. The findings are most suggestive of a small hematoma. No internal vascularity is present. No other abnormalities are identified. IMPRESSION: BI-RADS 3 Probable hematoma at the area of palpable abnormality 9:30 location left breast, 1 cm from the nipple. Followup in 4-6 weeks could be performed to confirm clearing. ACR BI-RADS Category 3: Probably benign findings. Result letter will be mailed to the patient. Note: At least 10% of breast cancer is not imaged by mammography. Dictated by: Dictated on workstation # [id number]
== END ==
LOC: RAD 09:45
PROVIDERS: ATTEND Obstetrics & Gynecology
DX: N63.20 Unspecified lump in the left breast, unspecified quadrant (principal); N64.89 Other specified disorders of breast
CPT/HCPCS: 76642

== ENCOUNTER → 2019-10-25 | Outpatient (CLI) | payer BC ==
[~2019-10-25] MED LIST changes: +ASCO500T17 PO; -ASCO500T6 PO
--- NOTE | 2019-10-25 14:09 | Diagnostic Imaging Report ---
EXAMINATION: Supine abdomen at 1:45 PM. INDICATION: Nephrolithiasis. FINDINGS: The prior exam of 03/28/2019 raised the question of a 3 mm calculus overlying the left kidney. That finding is again evident and no different. There is no other pathological calcification overlying the renal contours or along the expected paths of the ureters. There does seem to be a small single phlebolith low in the pelvis on the left. The bowel gas pattern is nonspecific. There is no mass or organomegaly identified. The osseous structures are intact. IMPRESSION: The small calcification overlying the left kidney seen previously is again evident and no different. There is no other calcification overlying the kidneys or along the expected paths of the ureters. Dictated by: Dictated on workstation # [id number]
== END ==
LOC: RAD 13:27
PROVIDERS: ATTEND Urology
DX: Z87.442 Personal history of urinary calculi (principal)
CPT/HCPCS: 74018

== ENCOUNTER → 2019-10-25 | Outpatient (CLI) | payer BC ==
--- NOTE | 2019-10-25 14:45 | Diagnostic Imaging Report ---
EXAMINATION: Ultrasound of the left wrist limited. INDICATION: Followup breast mass. FINDINGS: The previous limited left breast ultrasound exam of 05/25/2019 suggested a probable hematoma in the area of the patient's palpable abnormality in The 9:30 position of the breast roughly 1 cm from the nipple. On this exam, there is no discrete solid or cystic mass evident in this area. According to the patient, she does not feel any abnormality in this region. I suspect that the finding on the prior exam was most likely related to a hematoma which has subsequently resolved. IMPRESSION: 1. The suspected hematoma seen on the prior exam cannot be identified on this study. There is no primary or secondary sign of malignancy noted either. 2. The patient should have her bilateral screening mammogram on schedule in December of this year. ACR BI-RADS Category 1: Negative. Dictated by: Dictated on workstation # [id number]
== END ==
LOC: RAD 13:25
PROVIDERS: ATTEND Obstetrics & Gynecology
DX: R92.8 Other abnormal and inconclusive findings on diagnostic imaging of breast (principal)
CPT/HCPCS: 76642

== ENCOUNTER → 2020-01-15 | Outpatient (CLI) | payer BC ==
--- NOTE | 2020-01-15 11:35 | Diagnostic Imaging Report ---
INDICATION: Routine screening. COMPARISON: 01/12/2019 and 11/09/2017. TECHNIQUE: 2D and 3D bilateral screening mammography was performed with CAD. FINDINGS: Both breasts remain heterogeneously dense, limiting the sensitivity of mammography. The parenchymal pattern is stable. No mass or malignant appearing microcalcifications are seen. The axillae are unremarkable. IMPRESSION: No mammographic features suspicious for malignancy are identified. ACR BI-RADS Category 1: Negative. Result letter will be mailed to the patient. Note: At least 10% of breast cancer is not imaged by mammography. Dictated by: Dictated on workstation # [id number]
== END ==
LOC: RAD 10:13
PROVIDERS: ATTEND Obstetrics & Gynecology
DX: Z12.31 Encounter for screening mammogram for malignant neoplasm of breast (principal)
CPT/HCPCS: 77063; 77067

== ENCOUNTER 2020-07-05 22:13 | Emergency (ER) | payer BC ==
[~2020-07-05] VITALS: Ht 165.1 cm; Wt 113.6 kg
[2020-07-05 22:15] VITALS: BP 166/99
[2020-07-05] MEDS ORDERED: AUGMENTIN 875 MG TAB (AMOXICILLIN/CLAVULANATE) ONE (22:42)
[2020-07-05] MEDS ORDERED: AUGMENTIN 875 MG TAB (AMOXICILLIN/CLAVULANATE) PO SCH (22:45)
[2020-07-05] MEDS ORDERED: TETANUS,DIPTH,PERTUSS P/F (BOOSTRIX) 0.5 ML VIAL IM ONE (22:45)
[2020-07-05] MEDS ORDERED: AMOX-358 PO (22:49)
[2020-07-05] MEDS ORDERED: FLUC200T PO (22:49)
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
== END 2020-07-05 22:58 | disposition home or self-care (01) ==
LOC: EDUNIT# 22:13 → ER 22:15
DX: S01.511A Laceration without foreign body of lip, initial encounter (principal); E66.9 Obesity, unspecified; R40.2410 Glasgow coma scale score 13-15, unspecified time; Z68.41 Body mass index [BMI] 40.0-44.9, adult; Z23 Encounter for immunization; Z87.891 Personal history of nicotine dependence; Z82.61 Family history of arthritis; Y04.2XXA Assault by strike against or bumped into by another person, initial encounter
CPT/HCPCS: 90715

== ENCOUNTER → 2021-01-13 | Outpatient (CLI) | payer BC ==
[~2021-01-13] MED LIST changes: +AMOX-358 PO; -CIPR500T4 PO; +CIPR500T5 PO; +FLUC200T PO; -SULF1TAB35 PO; +SULF1TAB38 PO
--- NOTE | 2021-01-13 16:28 | Diagnostic Imaging Report ---
INDICATION: Routine screening. COMPARISON: 01/15/2020 and 01/12/2019. TECHNIQUE: 2D and 3D bilateral screening mammography was performed with CAD. FINDINGS: Both breasts are heterogeneously dense, limiting the sensitivity of mammography. No mass or malignant-appearing microcalcifications are seen. The axillae are unremarkable. IMPRESSION: No mammographic features suspicious for malignancy are identified. ACR BI-RADS Category 1: Negative. Result letter will be mailed to the patient. Note: At least 10% of breast cancer is not imaged by mammography. Dictated by: Dictated on workstation # [id number]
== END ==
LOC: RAD 11:15
PROVIDERS: ATTEND Obstetrics & Gynecology
DX: Z12.31 Encounter for screening mammogram for malignant neoplasm of breast (principal)
CPT/HCPCS: 77063; 77067

== ENCOUNTER → 2021-01-13 | Outpatient (CLI) | payer BC ==
[~2021-01-13] MED LIST changes: +CATHETER FLUSH 10 ML SYR IV PRN; +HOLD METFORMIN - RECEIVED CONTRAST 20 ML VIAL IV SCH; +IOHEXOL 350 MG/ML 100 ML (OMNIPAQUE 350) VIAL IV ONE; +NS 100 ML (IVPB) BAG IV ONE
[2021-01-13 14:45] LABS: BASOPHILS % (AUTO) 0 % (0-10); EOSINOPHILS % (AUTO) 0 % (0-10); HEMATOCRIT 40 % (35-52); HEMOGLOBIN 12.7 g/dL (11.5-16.0); LYMPHOCYTES # (AUTO) 1.4 10^3/uL (1.0-4.0); LYMPHOCYTES % (AUTO) 18 % (12-44); MEAN CORPUSCULAR HEMOGLOBIN 29 pg (25-34); MEAN CORPUSCULAR HGB CONC 32 g/dL (32-36); MEAN CORPUSCULAR VOLUME 90 fL (80-99); MEAN PLATELET VOLUME 9.6 fL (9.0-12.2); MONOCYTES # (AUTO) 0.7 10^3/uL (0.0-1.0); MONOCYTES % (AUTO) 8 % (0-12); NEUTROPHILS # (AUTO) 5.9 10^3/uL (1.8-7.8); NEUTROPHILS % (AUTO) 73 % (42-75); PLATELET COUNT 285 10^3/uL (130-400); WHITE BLOOD COUNT 8.1 10^3/uL (4.3-11.0)
[2021-01-13 14:51] LABS: ALBUMIN 4.3 GM/DL (3.2-4.5); POTASSIUM 3.5 MMOL/L (3.6-5.0)
[2021-01-13 14:52] LABS: CALCIUM 9.1 MG/DL (8.5-10.1)
[2021-01-13 14:53] LABS: TOTAL PROTEIN 7.4 GM/DL (6.4-8.2)
[2021-01-13 14:55] LABS: BILIRUBIN,TOTAL 0.4 MG/DL (0.1-1.0)
[2021-01-13 14:57] LABS: CREATININE SERUM 1.14 MG/DL (0.60-1.30)
--- NOTE | 2021-01-13 15:31 | Diagnostic Imaging Report ---
PROCEDURE: CT abdomen with and without contrast. TECHNIQUE: Multiple contiguous axial CT images of the abdomen were obtained prior to and after intravenous administration of iodinated contrast. Auto Exposure Controls were utilized during the CT exam to meet ALARA standards for radiation dose reduction. INDICATION: Abdominal pain with previous abdominal hernia and ovarian dermoid. FINDINGS: There is low density throughout the liver indicating steatosis. There is a minimal subcentimeter focus of low density in the anterior right hepatic lobe, which is too small to fully characterize but could represent a cyst. No gallbladder, pancreatic, adrenal gland, or splenic lesion is identified. 0.3 cm nonobstructing calculus is noted in the midportion of the left kidney. No free fluid is seen within the abdomen. There may be mild mural thickening of small bowel loops in the anterior central abdomen, although these are not fully included on this exam. No pathologic adenopathy is seen. IMPRESSION: Hepatic steatosis and nonobstructing left nephrolithiasis. Note is also made of possible mural thickening of small bowel in the midabdomen, which could reflect enteritis. Dictated by: Dictated on workstation # [id number]
== END ==
LOC: RAD 14:11
PROVIDERS: ATTEND Obstetrics & Gynecology
DX: K76.0 Fatty (change of) liver, not elsewhere classified (principal); N20.0 Calculus of kidney
CPT/HCPCS: 36415; 74170; 80053; 85025

== ENCOUNTER → 2021-09-10 | Outpatient (CLI) | payer BC ==
[~2021-09-10] MED LIST changes: -CATHETER FLUSH 10 ML SYR IV PRN; -HOLD METFORMIN - RECEIVED CONTRAST 20 ML VIAL IV SCH; -IOHEXOL 350 MG/ML 100 ML (OMNIPAQUE 350) VIAL IV ONE; -NS 100 ML (IVPB) BAG IV ONE
--- NOTE | 2021-09-10 14:24 | Diagnostic Imaging Report ---
INDICATION: Abdominal pain. EXAMINATION: KUB at 2:13 PM. FINDINGS: There is contrast in the stomach and colon from previous exams. The bowel gas pattern is normal. There are no dilated bowel loops. There are no appreciable calculi. IMPRESSION: Unremarkable abdomen. Dictated by: Dictated on workstation # [id number]
== END ==
LOC: RAD 14:01
PROVIDERS: ATTEND Urology
DX: R10.9 Unspecified abdominal pain (principal); Z87.442 Personal history of urinary calculi
CPT/HCPCS: 74018

== ENCOUNTER → 2021-09-10 | Outpatient (CLI) | payer BC ==
[~2021-09-10] MED LIST changes: +BARIUM for suspension 96% w/w (Vanilla Silq Medium Density) PO ONE; +BARIUM for suspension 98% w/w (Vanilla Silq High Density) PO ONE
--- NOTE | 2021-09-10 11:06 | Diagnostic Imaging Report ---
INDICATION: Dysphagia. TECHNIQUE: Patient ingested effervescent crystals as well as thin and thick barium, and imaging of the esophagus, stomach, and proximal small bowel was performed. A total of 1 minute of fluoroscopic time was utilized. FINDINGS: Preliminary radiograph of the abdomen is unremarkable. The esophagus has a smooth contour. No mass or stricture is identified. No hiatal hernia or gastroesophageal reflux was demonstrated. The stomach has a normal configuration. There is normal emptying into the small bowel. The duodenal bulb is without deformity. The visualized proximal small bowel loops are unremarkable. IMPRESSION: Unremarkable upper GI study. Dictated by: Dictated on workstation # [id number]
== END ==
LOC: RAD 07:56
PROVIDERS: ATTEND Nurse Practitioner Family
DX: R13.10 Dysphagia, unspecified (principal)
CPT/HCPCS: 74246

== ENCOUNTER → 2021-09-10 | Outpatient (CLI) | payer BC ==
[~2021-09-10] MED LIST changes: -BARIUM for suspension 96% w/w (Vanilla Silq Medium Density) PO ONE; -BARIUM for suspension 98% w/w (Vanilla Silq High Density) PO ONE
--- NOTE | 2021-09-10 09:18 | Diagnostic Imaging Report ---
PROCEDURE: Pelvic comp/transvaginal sonogram. TECHNIQUE: Complete transabdominal and transvaginal pelvic ultrasound was performed. In addition, limited pelvic Doppler was performed. INDICATION: Abnormal uterine bleeding. FINDINGS: Uterus is anteverted measuring 8.7 x 4.6 x 5.4 cm. Endometrium is 6 mm in thickness. No myometrial mass is detected. Right ovary measures 3.7 x 1.9 x 2.5 cm. Right ovary contains at least 2 cysts, largest approximately 2.2 x 1.2 x 1.9 cm and right ovary demonstrates blood flow. The patient reportedly has had a left oophorectomy. There is an ovoid mass in the left adnexa measuring 2.6 x 1.3 x 1.5 cm. This has the appearance of an ovary although this could potentially represent a pedunculated fibroid if the patient has had an oophorectomy. Clinical correlation to surgical history is recommended. There is no free fluid. There are several cervical nabothian cysts present. IMPRESSION: 1. Right ovarian cysts, as described. 2. Left adnexal mass versus left ovary. Correlation surgical history is recommended. Dictated by: Dictated on workstation # [id number]
== END ==
LOC: RAD 08:00
PROVIDERS: ATTEND Obstetrics & Gynecology
DX: N83.201 Unspecified ovarian cyst, right side (principal)
CPT/HCPCS: 76830; 76856

== ENCOUNTER → 2021-12-04 | Outpatient (CLI) | payer BC ==
[~2021-12-04] MED LIST changes: +ALPR0.25 PO
== END | disposition home or self-care (01) ==
LOC: PREOP 05:37
PROVIDERS: ATTEND Obstetrics & Gynecology
DX: Z01.818 Encounter for other preprocedural examination (principal)

== ENCOUNTER → 2022-04-17 | Outpatient (CLI) | payer OTHER ==
[2022-04-17 12:41] LABS: CALCIUM 9.6 MG/DL (8.5-10.1); CREATININE SERUM 0.82 MG/DL (0.60-1.30); POTASSIUM 3.8 MMOL/L (3.6-5.0); URIC ACID 6.4 MG/DL (2.6-7.2)
== END ==
LOC: LAB 11:55
PROVIDERS: ATTEND Urology
DX: Z87.442 Personal history of urinary calculi (principal)
CPT/HCPCS: 36415; 80048; 84100; 84550

== ENCOUNTER → 2023-03-04 | Outpatient (CLI) | payer OTHER ==
--- NOTE | 2023-03-04 13:23 | Diagnostic Imaging Report ---
Indication: Routine screening. Comparison is made with prior mammogram from 01/13/2021 and 01/15/2020. 2-D and 3-D bilateral screening mammography was performed with CAD. The current study was also evaluated with a Computer Aided Detection (CAD) system. Both breasts are heterogeneously dense, limiting the sensitivity of mammography. The parenchymal pattern is stable. No mass or malignant-appearing microcalcifications are seen. Axillae are unremarkable. IMPRESSION: BI-RADS Category 1 No mammographic features suspicious for malignancy are identified. ACR BI-RADS Category 1: Negative. Result letter will be mailed to the patient. Note: At least 10% of breast cancer is not imaged by mammography. Dictated by: Dictated on workstation # [id number]
== END ==
LOC: RAD 10:25
PROVIDERS: ATTEND Nurse Practitioner Women's Health
DX: Z12.31 Encounter for screening mammogram for malignant neoplasm of breast (principal)
CPT/HCPCS: 77063; 77067